=== PATIENT | female | born 1950 | race Caucasian/White ===

== ENCOUNTER 2017-06-10 06:29 | Inpatient (IN) ==
[2017-06-10] MEDS ORDERED: 0.9 % Sodium Chloride 1,000 ML IVC ONE (06:40)
[2017-06-10 06:50] LABS: Basophils # 0.1 K/mcL (0.0-0.2); Basophils % 1.1 %; Eosinophils # 0.1 K/mcL (0.0-0.6); Eosinophils % 3.1 %; Hematocrit 29.2 % (35.3-44.9); Immature Granulocytes % 0.2 % (0-4); Mean Platelet Volume 10.2 fL (9.4-12.4); Red Cell Distribution Width 17.2 % (11.5-14.5)
[2017-06-10 06:52] LABS: Immature Platelets 2.5 % (1.1-6.1); Lymphocytes # 1.3 K/mcL (0.6-4.6); Lymphocytes % 29.5 %; Mean Corpuscular HGB Conc 30.8 g/dL (31.6-35.5); Mean Corpuscular Hemoglobin 32.3 pg (28.0-33.3); Mean Corpuscular Volume 104.7 fL (83.0-100.0); Monocytes # 0.5 K/mcL (0.0-1.3); Monocytes % 10.4 %; Neutrophils # 2.5 K/mcL (1.6-8.9); Red Blood Count 2.79 M/mcL (3.82-4.97); Segmented Neutrophils % 55.7 %
--- NOTE | 2017-06-10 06:52 | Emergency Department Note ---
START Narrative - START START: 67-year-old female with history of diabetes presents to the emergency department by ambulance for altered mental status and hypoglycemia. reports that he heard her in the bathroom this morning and found her sitting on the commode shaking and diaphoretic and unresponsive. He went and called 911 when he returned she was lying on the floor. EMS reported an initial blood sugar of 35. An IV was established and she was given D50. On arrival here in the emergency department blood sugar was 153. Patient remains altered. She does respond to verbal stimuli and is oriented to place. She denies any pain. reports that she was fine when she went to bed. On examination breath sounds are equal bilaterally. Heart regular. Abdomen soft with present bowel sounds. Patient appears very pale. Workup initiated and patient will be turned over to the oncoming dayshift team, Dr. Wyatt and Dr. Fair.
[2017-06-10 06:53] LABS: Platelet Count 78 K/mcL (140-400)
[2017-06-10] MEDS ORDERED: D5% in 0.45% NACL 1,000 ML IVC SCH (07:00)
--- NOTE | 2017-06-10 07:07 | Emergency Department Note ---
Disposition Clinical Impression: Hypoglycemia, Hypokalemia, Elevated troponin Altered mental status Qualifiers: Altered mental status type: delirium Qualified Code(s): R41.0 - Disorientation , unspecified Hypothermia Qualifiers: Encounter type: initial encounter Qualified Code(s): T68.XXXA - Hypothermia, initial encounter Disposition: Admitted As Inpatient Condition: Fair Referrals: NONE,PCP [Primary Care Provider] - Forms: ED Satisfaction Letter Time of Disposition: 08:34 Altered Mental Status HPI - General Chief Complaint: ED Altered Mental Status Stated Complaint: hypoglycemia Time Seen by Provider: 06/10/17 06:37 Source: patient, family, EMS Mode of arrival: EMS Limitations: altered mental status Nursing Notes Reviewed: Yes Vital Signs Reviewed: Yes - History of Present Illness HPI Narrative: Patient presents to the ED via EMS. She was seen immediately upon arrival after signout from the nighttime team. Apparently, the patient was found slumped over the toilet in her bathroom. The boyfriend went out to call 911 and when he came back and the patient was on the floor. Upon EMS arrival, her blood glucose was 35. She was given D50 and her blood sugar came up to over 150. According to the boyfriend. There has been no recent illnesses or her complaining of any pain. He does state that she has issues with her blood sugar very frequently. Patient denies any pain, but is a very poor historian due to altered mental status. She is able answer simple yes or no questions and follow commands, however, will not volunteer any information. No known fever, chest pain, difficulty breathing, abdominal pain, nausea, vomiting, diarrhea - Related Data Home Medications Medication Instructions Recorded Confirmed Albuterol Sulfate [Albuterol 1 - 2 puff IH Q6H PRN 05/21/17 05/21/17 Inhaler] Allopurinol [Zyloprim 300 MG] 300 mg PO DAILY 05/21/17 05/21/17 Aspirin [Lo-Dose Aspirin EC] 81 mg PO DAILY 05/21/17 05/21/17 Atorvastatin [Lipitor] 40 mg PO QPM 05/21/17 05/21/17 Colchicine [Colcrys] 0.6 mg PO DAILY 05/21/17 05/21/17 Furosemide [Lasix] 40 mg PO BID 05/21/17 05/21/17 Gabapentin [Neurontin] 600 mg PO BID 05/21/17 05/21/17 Insulin DETEMIR [Levemir Flextouch] 70 unit SQ BID 05/21/17 05/21/17 Insulin LISPRO [Humalog Kwikpen 30 unit SQ ACHS 05/21/17 05/21/17 U-100] LORazepam [Ativan] 0.5 mg PO BID 05/21/17 05/21/17 Lisinopril [Zestril] 5 mg PO DAILY 05/21/17 05/21/17 Metoprolol [Lopressor] 25 mg PO BID 05/21/17 05/21/17 Martin-3/Dha/Epa/Fish Oil [Fish Oil 1,000 mg PO DAILY 05/21/17 05/21/17 1,000 mg Softgel] Tramadol HCl [Ultram] 50 mg PO TID PRN 05/21/17 05/21/17 Previous Rx's Medication Instructions Recorded Mmuepsixpwzf-Zjzt-Ubogpsmd,Iso 3.375 gm IV BID #18 vial 05/25/17 [Zosyn 3.375 gm/50 ml Galaxy] Levofloxacin [Levaquin] 500 mg PO Q48H #4 tablet 05/26/17 Allergies Allergy/AdvReac Type Severity Reaction Status Date / Time latex Allergy Hives Verified 05/21/17 09:53 Oxycodone Allergy Hives Verified 05/21/17 09:53 Limitations: ROS unobtainable due to patients medical condition Past Medical History - Past Medical History Source: obtained from family Medical history: Reports: diabetes, hyperlipidemia, hypertension Surgical history: Reports: no surgical history Psychiatric history: Reports: no psych history BOLT HEADER history: Reports: no BOLT HEADER history - Social History Smoking Status: Never smoker Smokeless Tobacco Status: No Alcohol use: Reports: none Drug use: Reports: none Physical Exam - General Limitations: altered mental status General appearance: in no apparent distress, lethargic - Head Head exam: atraumatic, normocephalic, normal inspection - Eye Eye exam: Present: normal appearance, PERRL - ENT ENT exam: mucous membranes moist - Neck Neck exam: Present: trachea midline. Absent: tenderness, meningismus - Chest Chest inspection: Present: normal inspection, symmetric chest wall rise - Respiratory Respiratory exam: Present: normal lung sounds bilaterally - Cardiovascular Cardiovascular exam: Present: regular rate, normal rhythm, normal heart sounds - Abdominal Exam Abdominal exam: Present: soft, tenderness, guarding. Absent: distention Abdominal tenderness: Present: RUQ, mild, moderate - Extremities Exam Extremities exam: Present: normal inspection, full ROM. Absent: tenderness, pedal edema - Neurological Exam Neurological exam: Absent: oriented X3 (person and place but not time) - Skin Skin exam: Present: dry, intact, pallor, other (cold) Course Course Narrative: 59-year-old female presenting with altered mental status. Initially hypoglycemic, given D50 with good improvement, but not normal return to baseline. Patient was sugar dropping back down below 100. Started on a D5 half -normal saline drip. Head CT is normal. She is hypokalemic, hypothermic, elevated troponin. We will admit to hospitalist for further evaluation. Vital Signs Temperature 94.2 F L 06/10/17 06:32 Pulse Rate 66 06/10/17 06:32 Respiratory Rate 14 06/10/17 06:32 Blood Pressure 106/57 06/10/17 06:32 O2 Sat by Pulse Oximetry 94 06/10/17 06:32 Temperature 97.6 F 06/10/17 08:13 Pulse Rate 77 06/10/17 08:13 Respiratory Rate 10 06/10/17 08:13 Blood Pressure 99/49 06/10/17 08:13 O2 Sat by Pulse Oximetry 97 06/10/17 08:13 Oxygen Delivery Oxygen Delivery Nasal Cannula Altered Mental Status - Medical Records Medical records reviewed: Yes I reviewed the patient's medical records. - Lab Data Lab results reviewed: Yes I reviewed the patient's lab results. Result diagrams: 06/10/17 06:39 06/10/17 06:39 Lab Results 06/10/17 06/10/17 06/10/17 Range/Units 06:39 06:39 06:39 WBC 4.5 (4.3-11.1) K/mcL RBC 2.79 L (3.82-4.97) M/mcL Hgb 9.0 L (11.5-15.4) g/dL Hct 29.2 L (35.3-44.9) % MCV 104.7 H (83.0-100.0) fL MCH 32.3 (28.0-33.3) pg MCHC 30.8 L (31.6-35.5) g/dL RDW 17.2 H (11.5-14.5) % Plt Count 78 L (140-400) K/mcL MPV 10.2 (9.4-12.4) fL Immature Gran % 0.2 (0-4) % Seg Neutrophils % 55.7 % Lymphocytes % 29.5 % Monocytes % 10.4 % Eosinophils % 3.1 % Basophils % 1.1 % Neutrophils # 2.5 (1.6-8.9) K/mcL Lymphocytes # 1.3 (0.6-4.6) K/mcL Monocytes # 0.5 (0.0-1.3) K/mcL Eosinophils # 0.1 (0.0-0.6) K/mcL Basophils # 0.1 (0.0-0.2) K/mcL Immature Plt Fraction 2.5 (1.1-6.1) % Sodium 140 (136-145) mEq/L Potassium 2.7 L (3.5-4.5) mEq/L Chloride 105 (98-109) mEq/L Carbon Dioxide 27 (19-29) mEq/L BUN 18 (7-20) mg/dL Creatinine 1.46 H (0.57-1.11) mg/dL Est GFR ( Amer) 43 L (> 60) Est GFR (Non-Af Amer) 36 L (> 60) BUN/Creatinine Ratio 12 (6-26) Glucose 137 H (70-99) mg/dL Calculated Osmolality 294 (280-300) Lactic Acid (0.5-2.2) mmol/L Calcium 9.1 (8.6-10.8) mg/dL Total Bilirubin 0.8 (0.2-1.2) mg/dL AST 67 H (5-34) Units/L ALT 18 (0-55) Units/L Alkaline Phosphatase 91 (38-126) Units/L Ammonia (18-72) mcmol/L Troponin I 0.07 H* (0-0.03) ng/mL Serum Total Protein 7.6 (6.0-8.3) g/dL Albumin 3.0 L (3.5-5.0) g/dL Globulin 4.6 H (2.4-3.5) g/dL Albumin/Globulin Ratio 0.7 L (1.1-2.2) TSH 2.347 (0.350-4.840) mcIU/mL Urine Color (Yellow) Urine Clarity (Clear) Urine pH (5.0-8.0) pH Units Ur Specific [place] (1.010-1.025) Urine Protein (Neg-Trace) mg/dL Urine Glucose (UA) (Normal) mg/dL Urine Ketones (Negative) mg/dL Urine Blood (Negative) Urine Nitrite (Negative) Urine Bilirubin (Negative) Urine Urobilinogen (Normal) mg/dL Ur Leukocyte Esterase (Negative) Urine Microscopic RBC (0-3) per hpf Urine Microscopic WBC (0-3) per hpf Ur Squamous Epith Cells (None-Few) per lpf Urine Bacteria (None-Few) per hpf Hyaline Casts (None-Few) per lpf Ur Culture Indicated? (NO) 06/10/17 06/10/17 06/10/17 Range/Units 06:39 06:39 07:50 WBC (4.3-11.1) K/mcL RBC (3.82-4.97) M/mcL Hgb (11.5-15.4) g/dL Hct (35.3-44.9) % MCV (83.0-100.0) fL MCH (28.0-33.3) pg MCHC (31.6-35.5) g/dL RDW (11.5-14.5) % Plt Count (140-400) K/mcL MPV (9.4-12.4) fL Immature Gran % (0-4) % Seg Neutrophils % % Lymphocytes % % Monocytes % % Eosinophils % % Basophils % % Neutrophils # (1.6-8.9) K/mcL Lymphocytes # (0.6-4.6) K/mcL Monocytes # (0.0-1.3) K/mcL Eosinophils # (0.0-0.6) K/mcL Basophils # (0.0-0.2) K/mcL Immature Plt Fraction (1.1-6.1) % Sodium (136-145) mEq/L Potassium (3.5-4.5) mEq/L Chloride (98-109) mEq/L Carbon Dioxide (19-29) mEq/L BUN (7-20) mg/dL Creatinine (0.57-1.11) mg/dL Est GFR ( Amer) (> 60) Est GFR (Non-Af Amer) (> 60) BUN/Creatinine Ratio (6-26) Glucose (70-99) mg/dL Calculated Osmolality (280-300) Lactic Acid 1.4 (0.5-2.2) mmol/L Calcium (8.6-10.8) mg/dL Total Bilirubin (0.2-1.2) mg/dL AST (5-34) Units/L ALT (0-55) Units/L Alkaline Phosphatase (38-126) Units/L Ammonia 60 (18-72) mcmol/L Troponin I (0-0.03) ng/mL Serum Total Protein (6.0-8.3) g/dL Albumin (3.5-5.0) g/dL Globulin (2.4-3.5) g/dL Albumin/Globulin Ratio (1.1-2.2) TSH (0.350-4.840) mcIU/mL Urine Color Yellow (Yellow) Urine Clarity Cloudy A (Clear) Urine pH 5.5 (5.0-8.0) pH Units Ur Specific [place]an 1.016 (1.010-1.025) Urine Protein Trace (Neg-Trace) mg/dL Urine Glucose (UA) Normal (Normal) mg/dL Urine Ketones Negative (Negative) mg/dL Urine Blood Small H (Negative) Urine Nitrite Negative (Negative) Urine Bilirubin Negative (Negative) Urine Urobilinogen Normal (Normal) mg/dL Ur Leukocyte Esterase Negative (Negative) Urine Microscopic RBC 0-3 (0-3) per hpf Urine Microscopic WBC 0-3 (0-3) per hpf Ur Squamous Epith Cells Many H (None-Few) per lpf Urine Bacteria None Seen (None-Few) per hpf Hyaline Casts None Seen (None-Few) per lpf Ur Culture Indicated? NO (NO) - Radiology Data Radiology results reviewed: Yes I reviewed the patient's radiology results. Chest X-Ray 06/10/17 06:38 IMPRESSION: Mild edema and scattered areas of atelectasis D/ / Victorino Rodrigez MD / Victorino Rodrigez MD Interpreting Provider: Victorino Rodrigez MD Head CT 06/10/17 07:00 IMPRESSION: 1. No acute intracranial abnormality. 2. Minimal chronic microvascular ischemic change. 3. Minimal scattered atherosclerosis. D/ / Davian Dominguez MD / Davian Dominguez MD Interpreting Provider: Davian Dominguez MD - EKG Data EKG attestation: Yes I reviewed and interpreted this EKG. EKG results narrative: [Developed, rate 69, CT interval 192, QRS 117, QTC 469, nonspecific changes that are nondiagnostic TPA Checklist - LKW: 3-4.5 hrs Add. Warnings/Precautions Patient/family understanding: The patient/family members have been counseled and understood the risk, benefit , and alternatives of treatment. S.B.A.RJesus - Rosas.Marissa Situation: Demographics, MOA Background: Presenting Complaint, Relevant PMH, Meds, & Allergies Assessment: Vital Signs, Course and respsone to treatment, Exam Concerns, Patient/Family Expectation, Pertinant Lab Results, Outstanding Labs Recommendation: Barrier(s) to disposition, Recommendation based on pending studies, treatments, or consults S.B.A.RJesus Report Given to: Dr. Tavon Hathaway Repor Time: 08:33 Attestation Statement - Attestation Attestation: I, Madhav Fair, examined this patient and my medical decision-making was reviewed with the SAS ADMINISTRATOR/PA/Advanced Practice Nurse/Resident Physician. I agree with the documented findings, disposition and treatment plan as described except to the extent set forth below. 59-year-old female presents to the emergency department with altered mental status. When found patient sitting on toilet, convulsing. Significant other left to call EMS and found her on the floor when he returned. Significant other reports patient was in her usual state of health yesterday. She does have a history of becoming hypoglycemic and her PCP has been lowering her doses of insulin, EMS found her fingerstick blood sugar to be 35 upon arrival. Patient's blood sugar improved after administration of medication in the emergency department however her mental status did not return to normal. Auditory evaluation patient had return of a elevated troponin at 0.07. Potassium returned at 2.7. Patient denies chest pain. EKG showed normal sinus rhythm with a rate of 69 without evidence of STEMI. CT of the head did not show acute abnormality. Patient will be admitted to the hospital for further care and evaluation of her altered mental status and elevated troponin.
[2017-06-10 07:08] LABS: Albumin/Globulin Ratio 0.7 (1.1-2.2); Bilirubin,Total 0.8 mg/dL (0.2-1.2); Calcium 9.1 mg/dL (8.6-10.8); Globulin 4.6 g/dL (2.4-3.5); Potassium 2.7 mEq/L (3.5-4.5); Total Protein 7.6 g/dL (6.0-8.3)
[2017-06-10 07:52] LABS: Thyroid Stimulating Hormone 2.347 mcIU/mL (0.350-4.840)
[2017-06-10 07:59] LABS: Bilirubin,Urine Negative (Negative); Blood,Urine Small (Negative); Clarity,Urine Cloudy (Clear); Color,Urine Yellow (Yellow); Glucose,Urine (UA) Normal (Normal); Ketones,Urine Negative (Negative); Leukocyte Esterase,Urine Negative (Negative); Nitrite,Urine Negative (Negative); PH,Urine 5.5 pH Units (5.0-8.0); Protein,Urine Trace mg/dL (Neg-Trace); Specific Gravity,Urine 1.016 (1.010-1.025); Urobilinogen,Urine Normal (Normal)
[2017-06-10 08:01] LABS: Bacteria,Urine None Seen per hpf (None-Few); Hyaline Casts,Urine None Seen per lpf (None-Few); RBC,Urine 0-3 per hpf (0-3); Squamous Epithelial Cell,Urine Many per lpf (None-Few); WBC,Urine 0-3 per hpf (0-3)
[2017-06-10] MEDS ORDERED: Aspirin 325 MG TABLET PO ONE (08:08)
[2017-06-10] MEDS ORDERED: Potassium Chloride 40 MEQ, Lidocaine 1% 2 ML in D5% in Water 500 ML IVPB ONE (08:09)
[2017-06-10] MEDS ORDERED: Acetaminophen 325 MG TABLET PO PRN (11:25)
[2017-06-10] MEDS ORDERED: Naloxone 0.4 MG/ML INJ IVP PRN (11:25)
--- NOTE | 2017-06-10 11:33 | Internal Med History&Physical ---
Date of Encounter: 06/10/17 Time of Encounter: 10:00 Assessment and Plan (1) Hypoglycemia Current visit: Yes Status: Acute Unclear as to why she became hypoglycemic. She states she has been compliant with all her medicines and eating a good diet. The last I will hold off her long-acting insulin temporarily, continue with corrective dose insulin and monitor. May likely need to send her home on a much lower dose of long-acting. We will see how she responds in the hospital. Of note she was hypothermic when originally seen in the field but now her temperature is normal. We will continue to monitor. I do not see any signs of sepsis. (2) Altered mental status Current visit: Yes Status: Acute Yeison Sixto due to hypoglycemia. Resolved. Qualifiers: Altered mental status type: delirium Qualified Code(s): R41.0 - Disorientation, unspecified (3) COPD (chronic obstructive pulmonary disease) Current visit: No Status: Chronic Stable, continue bronchodilators. Qualifiers: COPD type: unspecified COPD Qualified Code(s): J44.9 - Chronic obstructive pulmonary disease, unspecified (4) Acute kidney injury superimposed on chronic kidney disease Current visit: No Status: Acute Avoid unnecessary nephrotoxins. Despite her chest x-ray suggesting mild edema, clinically she appears hypovolemic. We will continue with IV fluids as written. Monitor. (5) Alcoholic cirrhosis of liver Current visit: No Status: Chronic Supportive care monitor. Qualifiers: Ascites presence: without ascites Qualified Code(s): K70.30 - Alcoholic cirrhosis of liver without ascites (6) Thrombocytopenia Current visit: No Status: Acute Due to cirrhosis, platelet counts 78,000. We will use SCDs for DVT prophylaxis. (7) Cholelithiasis Current visit: Yes Status: Acute Curren tly asymptomatic, monitor Qualifiers: Cholelithiasis location: gallbladder Cholecystitis presence: without cholecystitis Biliary obstruction: without biliary obstruction Qualified Code(s): K80.20 - Calculus of gallbladder without cholecystitis without obstruction (8) Cholelithiasis Current visit: Yes Status: Acute Asymptoma she does have some right midabdominal pain which she attributes to a fall, which she has had for over a week and is now improving. She has no signs to suggest cholecystitis. For now we will monitor. Qualifiers: Qualified Code(s): K80.20 - Calculus of gallbladder without cholecystitis without obstruction (9) Abdominal pain Current visit: Yes Status: Acute CT reviewed. states she's had abd pain for 1 week since a fall, slowly improving. Qualifiers: Abdominal location: lower abdomen, unspecified Qualified Code(s): R10.30 - Lower abdominal pain, unspecified Internal Medicine - H&P: HPI Admitted From: Emergency Dept Plans for Post Hospital Care: Home History of present illness: Ms. Easton is a 67 year old female who was recently discharged from our facility on 05/26/2017. During her admission at that time she was treated for a Escherichia coli UTI with possible Danie. Initially treated with Zosyn and transitioned to Levaquin to complete a 14 day course of antibiotics. Complicated admission with acute kidney injury, as well as hypotension requiring pressors in the ICU. She also during admission had an EGD for concerns of upper GI bleed which showed no evidence of bleeding, but did show varices. Patient does have a history of alcoholic liver cirrhosis. Patient was doing well up until this morning when her found her sitting in a chair slumped over. EMS was called and her blood sugar was 35. She was given an amp of D50 and taken to the emergency department. Her blood sugar improved almost immediately with the amp of D50. In the ER she had a CAT scan of her head which showed no acute process. She also had an abdominal pelvis CT which showed a hydropic gallbladder and cholelithiasis but no evidence of cholecystitis. Patient did complain of some right mid abdominal pain but stated this was due to a fall about a week ago. She denied any fevers or chills. No nausea or vomiting. No diarrhea. No chest pain or shortness of breath. She states she has been eating well. She recently had her insulin insulin Levemir decreased to 50 mg subcutaneous twice a day. She states she has been compliant with all medications. Presently she states she feels much better, and would like to go home as soon as possible. In the emergency room her labs showed an O2 sat of 97% on 2 L, she had a slow respiratory rate of 10 which is now improved. She was afebrile. Blood pressure 99/49. On exam she was initially lethargic but is now awake alert and oriented 3. Lungs clear heart regular rate and rhythm abdomen showed some mild right mid abdomen tenderness to palpation which she has had for over a week per her report. Vocal. Labs show normal white count of 4.5, hemoglobin 9, platelets of 78,000 which is not new. BUN/creatinine of 18 over 1.46. Potassium 2.7. Sodium 140. Blood sugar now 137. Troponin 0.07. BNP of 317. Urinalysis is negative. Trace of possible mild pulmonary edema. Exam however she had diminished skin turgor, dry mucous membranes, and appeared to be dehydrated. Patient is now admitted to the general medicine floor, she is receiving IV fluids in the form of D5 normal saline at 125 miles per hour. She is also receiving potassium supplementation. Past Med Surg Social Fam HX - Past Medical History Medical history: COPD, diabetes, hyperlipidemia, hypertension Psychiatric history: no psych history - Past Surgical History Surgical History: no surgical history - Social History Smoking Status: Never smoker Smokeless Tobacco Status: No Alcohol use: none Drug use: none Occupational status: unemployed Current living situation: Home Activity Level: Independent ambulation Recent Out of Country Travel Within the Last 8 Weeks: No Exposure or Possible Exposure to Illness During Travel: No Internal Medicine - H&P: Meds Albuterol Sulfate [Albuterol Inhaler] 1 - 2 puff IH Q6H PRN 05/21/17 [History] Allopurinol [Zyloprim 300 MG] 300 mg PO DAILY 05/21/17 [History] Aspirin [Lo-Dose Aspirin EC] 81 mg PO DAILY 05/21/17 [History] Atorvastatin [Lipitor] 40 mg PO QPM 05/21/17 [History] Colchicine [Colcrys] 0.6 mg PO DAILY 05/21/17 [History] Furosemide [Lasix] 40 mg PO BID 05/21/17 [History] Gabapentin [Neurontin] 600 mg PO BID 05/21/17 [History] Insulin DETEMIR [Levemir Flextouch] 70 unit SQ BID 05/21/17 [History] Insulin LISPRO [Humalog Kwikpen U-100] 30 unit SQ ACHS 05/21/17 [History] LORazepam [Ativan] 0.5 mg PO BID 05/21/17 [History] Lisinopril [Zestril] 5 mg PO DAILY 05/21/17 [History] Metoprolol [Lopressor] 25 mg PO BID 05/21/17 [History] Parrish-3/Dha/Epa/Fish Oil [Fish Oil 1,000 mg Softgel] 1,000 mg PO DAILY 05/21/17 [History] Tramadol HCl [Ultram] 50 mg PO TID PRN 05/21/17 [History] Vhnwftsxgeml-Igus-Fgntmjrk,Iso [Zosyn 3.375 gm/50 ml Galaxy] 3.375 gm IV BID # 18 vial 05/25/17 [Rx] Levofloxacin [Levaquin] 500 mg PO Q48H #4 tablet 05/26/17 [Rx] 3 Allergy/AdvReac Type Severity Reaction Status Date / Time latex Allergy Hives Verified 05/21/17 09:53 Oxycodone Allergy Hives Verified 05/21/17 09:53 All Systems PM: A 10-system review of systems was performed and is negative for pertinent findings except as documented above in the HPI. - Constitutional Vitals: Temp Pulse Resp BP Pulse Ox 97.3 F L 74 16 110/64 94 06/10/17 10:05 06/10/17 10:05 06/10/17 10:05 06/10/17 10:05 06/10/17 10:05 General appearance: Present: A&O X 3 (Still slow with mentation), no acute distress - Head Head exam: Present: atraumatic, normocephalic - Eye Eye exam: Present: PERRL, conjuntiva pink, sclera anicteric Pupils: Present: PERRL - ENT ENT exam: Present: mucous membranes dry - Neck Neck exam general surgery: Present: supple, trachea midline. Absent: lymphadenopathy - Respiratory Respiratory exam: Present: CTAB. Absent: accessory muscle use, rales, rhonchi, wheezes - Cardiovascular Cardiovascular exam: Present: RRR, +S1, +S2. Absent: diastolic murmur, gallop, rubs, systolic murmur - GI/Abdominal GI/Abdominal exam: Present: normal bowel sounds, soft, tenderness (Mild mid right lateral abdominal wall tenderness to palpation. No rebound or guarding.) , no peritoneal signs. Absent: distended - Extremities Exam Extremities exam: Present: warm (Skin with diminished turgor), radial pulses palpable and symmetrical. Absent: calf tenderness, cyanotic, pedal edema - Neurological Exam Neurological exam: Present: CN II-XII intact, oriented X3, no focal deficits. Absent: pronater drift, facial droop, speech deficit - Skin Skin exam: Present: dry, intact Internal Med - H&P Results - Labs CBC & Chem 7: 06/10/17 06:39 06/10/17 06:39 - Impressions ITS Impressions Abdomen/Pelvis CT 06/10/17 08:49 IMPRESSION: Interval distention of the gallbladder, now hydropic, with gallbladder sludge and gallbladder stones. Cirrhotic liver morphology. Splenomegaly, likely due to sequela of portal hypertension. D/ / 06/10/2017 10:13:17 David Hawthorne MD / re Interpreting Provider: David Hawthorne MD
[2017-06-10] MEDS ORDERED: D5% in Water 1,000 ML IVC PRN (11:44)
[2017-06-10] MEDS ORDERED: *HR* Dextrose 50 % in Water (Syg) 50 ML SYRINGE IVP PRN (11:44)
[2017-06-10] MEDS ORDERED: Dextrose Gel 15 GM PO PRN ×2 (11:44)
[2017-06-10] MEDS: Insulin LISPRO 300 UNITS/3 ML VIAL SQ SCH ×3 (12:53→23:36)
[2017-06-10] MEDS: D5% in 0.9% NACL w KCl 20 MEQ/1,000 ML MLS IVC SCH ×2 (12:53→21:02)
[2017-06-10] MEDS ORDERED: *HR* HYDROcodone/Acet 5/325 mg TABLET PO PRN ×2 (13:37→18:03)
[2017-06-10] MEDS ORDERED: *HR* Morphine 2 MG/ML SYRINGE IVP PRN (18:02)
[2017-06-10] MEDS ORDERED: Gabapentin 300 MG CAPSULE PO SCH (21:00)
[2017-06-10 22:53] VITALS: BP 101/58
[2017-06-11] MEDS ORDERED: Ipratropium/Albuterol Neb 3 ML ONE (02:08)
[2017-06-11] MEDS ORDERED: Furosemide 40 MG/4 ML VIAL ONE (02:10)
[2017-06-11] MEDS ORDERED: *HR* Morphine 2 MG/ML SYRINGE ONE (02:11)
[2017-06-11] MEDS ORDERED: *HR* Dextrose 50 % in Water (Syg) 50 ML SYRINGE ONE (02:27)
[2017-06-11] MEDS ORDERED: *HR* EPINEPHrine 1 MG/10 ML SYRINGE IVP ONE (02:44)
[2017-06-11] MEDS ORDERED: *HR* Midazolam HCl 5 MG/5 ML VIAL IVP ONE (02:44)
[2017-06-11] MEDS ORDERED: *HR* Atropine Sulfate 1 MG/10 ML SYRINGE IV ONE (02:44)
--- NOTE | 2017-06-11 03:02 | Event Note ---
Date of Encounter: 06/11/17 Time of Encounter: 02:55 CODE BLUE NOTE: I responded to a rapid response on this patient with Dr. Resendiz and Dr. Vance. Upon my arrival to bedside, patient was in severe respiratory distress/extremis while sitting on a chair. We moved her to the bed urgently and were preparing to intubate her when she suddenly became pulseless prior to intubation. At that point, we started resuscitating per ACLS protocol. An airway was established, and I placed a right femoral CVC emergently after a failed IO in her right tibia. Despite sustained compressions, ventilations via ETT, and meds per CVC, patient did not respond to ACLS measures. After exhausting all measures, we stopped resuscitation as we could not establish a return of spontaneous circulation. Patient was pronounced at 2:45 a.m. Family member was contacted by Dr. Resendiz. Time of : 02:45 a.m.
[2017-06-11] MEDS ORDERED: *HR* Enoxaparin 40 MG/0.4 ML SYRINGE SQ SCH (06:00)
[2017-06-11] MEDS ORDERED: Aspirin Enteric Coated 81 MG Tablet PO SCH (09:00)
[2017-06-11] MEDS ORDERED: Colchicine 0.6 MG TABLET PO SCH (09:00)
--- NOTE | 2017-06-12 21:42 | Electrocardiograph Report ---
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
== END 2017-06-11 02:45 | disposition expired | DRG 639 ==
LOC: 3BNU 06:29 → EMEROO 06:29 → 3BNU 09:30
PROVIDERS: ADMIT Internal Medicine; ATTEND Registered Nurse